=== PATIENT | female | born 1995 ===

== ENCOUNTER 2017-04-24 21:17 | Emergency (ER) | payer OTHER ==
[2017-04-24 21:22] VITALS: RESP 18; O2SAT 99
[2017-04-24] MEDS ORDERED: KETOROLAC TROMETHAMINE 30 MG/ML SOL IM ONE (21:30)
[2017-04-24] MEDS ORDERED: ACETAMINOPHEN 500 MG 500 MG TAB PO ONE (21:30)
[2017-04-24] MEDS ORDERED: KETOROLAC TROMETHAMINE 30 MG/ML SOL ONE (21:31)
[2017-04-24] MEDS ORDERED: ACETAMINOPHEN 500 MG 500 MG TAB ONE (21:35)
[2017-04-24 22:38] LABS: APPEARANCE,URINE Cloudy; BILIRUBIN,URINE 1+ (NEGATIVE); COLOR,URINE Yellow; GLUCOSE, URINE (UA) NEGATIVE (NEGATIVE); KETONES,URINE NEGATIVE (NEGATIVE); LEUKOCYTE ESTERASE ,URINE 3+ (NEGATIVE); NITRATE,URINE NEGATIVE (NEGATIVE); OCCULT BLOOD,URINE 1+ (NEG-TRACE); PH,URINE 6.5; UROBILINOGEN,URINE >=8.0 (0.2-1.0 EU)
[2017-04-24 22:57] LABS: ICTOTEST,URINE NEGATIVE (NEGATIVE); WBC,URINE 20-30 (0-5AV/HPF)
[2017-04-24] MEDS ORDERED: CEFTRIAXONE 1 GM PDS IM ONE (22:59)
[2017-04-24] MEDS ORDERED: LIDOCAINE HCL 1% MPF SOL ONE (23:01)
[2017-04-24] MEDS ORDERED: CEFTRIAXONE 1 GM PDS ONE (23:01)
[2017-04-24 23:14] VITALS: BP 136/78; PULSE 86; TEMP 98.8
== END 2017-04-24 23:12 | disposition home or self-care (01) ==
LOC: ED 21:17
DX: N10 Acute pyelonephritis (principal)
CPT/HCPCS: 81001; 84703; 87088; 96372; 99283; 99284; J0696; J1885; J2001